=== PATIENT | female | born 1990 | race Two or more races ===

== ENCOUNTER 2019-01-09 12:22 | Emergency (ER) | payer OTHER ==
[~2019-01-09] VITALS: Ht 170.2 cm; Wt 100.7 kg
== END 2019-01-09 17:02 | disposition home or self-care (01) ==
LOC: ER 12:22
DX: R07.89 Other chest pain (principal); M94.0 Chondrocostal junction syndrome [Tietze]

== ENCOUNTER 2021-03-03 09:18 | Emergency (ER) | payer OTHER ==
[~2021-03-03] VITALS: Ht 170.2 cm; Wt 97.1 kg
[2021-03-03] MEDS ORDERED: KETO10TA2 PO (12:58)
[2021-03-03] MEDS ORDERED: NORFLEX100MG PO (12:58)
== END 2021-03-03 13:53 | disposition home or self-care (01) ==
LOC: ER 09:18
DX: M54.5 Low back pain (principal)

== ENCOUNTER 2022-05-09 13:49 | Outpatient (CLI) | payer OTHER ==
[~2022-05-09 13:49] MED LIST: KETO10TA2 PO; NORFLEX100MG PO
== END 2022-05-09 16:00 | disposition home or self-care (01) ==
LOC: PRENATAL 13:49
PROVIDERS: ATTEND Obstetrics & Gynecology Maternal & Fetal Medicine
DX: O35.9XX0 Maternal care for (suspected) fetal abnormality and damage, unspecified, not applicable or unspecified (principal); O34.219 Maternal care for unspecified type scar from previous cesarean delivery; Z3A.20 20 weeks gestation of pregnancy

== ENCOUNTER 2023-10-19 17:40 | Emergency (ER) | payer OTHER ==
[~2023-10-19] VITALS: Ht 170.2 cm; Wt 102.1 kg
[2023-10-19 19:48] LABS: HEMATOCRIT 33.5 % (36.0-45.00); MEAN CELL VOLUME 80.3 fL (80.00-100.00); MEAN CORPUSCULAR HEMOGLOBIN 26.5 pg (27.00-32.0); MEAN CORPUSCULAR HGB CONC 32.9 g/dl (32.0-36.0); PLATELET COUNT 207 K/uL (150-450); RED BLOOD COUNT 4.18 M/uL (4.00-6.00); RED CELL DISTRIBUTION WIDTH 15.7 % (11.5-14.5)
[2023-10-19] MEDS ORDERED: OSEL75CA PO (20:05)
[2023-10-19] MEDS ORDERED: TUSNEL LIQUID178 ML PO (20:05)
[2023-10-19] MEDS ORDERED: GUAIFENESIN/DEXTROMETHORPHAN 100 MG/5 ML ML PO ONE (20:15)
[2023-10-19] MEDS ORDERED: DEXAMETHASONE SODIUM PHOSPHATE 4 MG/ML VIAL IM ONE (20:15)
[2023-10-19] MEDS ORDERED: OSELTAMIVIR PHOSPHATE 75 MG CAPSULE PO ONE (20:15)
== END 2023-10-19 20:12 | disposition home or self-care (01) ==
LOC: ER 17:40
PROVIDERS: Emergency Medicine
DX: J10.1 Influenza due to other identified influenza virus with other respiratory manifestations (principal)

== ENCOUNTER 2024-09-22 10:33 | Emergency (ER) | payer OTHER ==
[~2024-09-22] VITALS: Ht 170.2 cm; Wt 106.6 kg
[~2024-09-22 10:33] MED LIST changes: +OSEL75CA PO; +TUSNEL LIQUID178 ML PO
[2024-09-22] MEDS ORDERED: DEXAMETHASONE SODIUM PHOSPHATE 4 MG/ML VIAL IM STA (12:22)
[2024-09-22] MEDS ORDERED: GUAIFENESIN 200 MG/10 ML BLIST.PACK PO STA (12:23)
[2024-09-22] MEDS ORDERED: ALBUTEROL SULFATE 3 ML/2.5 MG AMPUL.NEB IH STA (12:23)
[2024-09-22] MEDS ORDERED: BUDESONIDE 0.5 MG/2 ML AMPUL.NEB IH STA (12:23)
[2024-09-22] MEDS ORDERED: CODEINE/PROMETHAZINE HCL 1 ML ML PO STA (12:24)
[2024-09-22 13:36] LABS: HEMATOCRIT 31.4 % (36.0-45.00); MEAN CELL VOLUME 77.8 fL (80.00-100.00); MEAN CORPUSCULAR HGB CONC 31.8 g/dl (32.0-36.0); PLATELET COUNT 260 K/uL (150-450); RED BLOOD COUNT 4.03 M/uL (4.00-6.00); RED CELL DISTRIBUTION WIDTH 16.1 % (11.5-14.5)
[2024-09-22 13:40] LABS: MEAN CORPUSCULAR HEMOGLOBIN 24.8 pg (27.00-32.0)
[2024-09-22] MEDS ORDERED: PROMETHAZINE W473 ML PO (15:09)
[2024-09-22] MEDS ORDERED: ALBUTEROL2.5 MG/3 M IH (15:09)
[2024-09-22] MEDS ORDERED: BUDESONIDE0.5 MG/2 M IH (15:09)
[2024-09-22] MEDS ORDERED: ZITHROMAX500 MG PO (15:09)
== END 2024-09-22 15:45 | disposition home or self-care (01) ==
LOC: ER 10:36
PROVIDERS: Emergency Medicine
DX: J06.9 Acute upper respiratory infection, unspecified (principal); J40 Bronchitis, not specified as acute or chronic; Z20.822 Contact with and (suspected) exposure to COVID-19
CPT/HCPCS: 36415; 71046; 96372; 99283; J3490